=== PATIENT | male | born 1985 | race American Indian/Alaskan Native ===

== ENCOUNTER 2017-06-12 02:37 | Emergency (ER) | payer SELFPAY ==
--- NOTE | 2017-06-12 06:36 | Emergency Department Report ---
ED General Adult HPI - General Chief complaint: Skin Rash Stated complaint: ECZEMA Time Seen by Provider: 06/12/17 05:59 Source: patient Mode of arrival: Ambulatory Limitations: No Limitations - History of Present Illness Initial comments: 31 yo male who comes in today due to an eczema exacerbation. He states that he has been out of his topical medication for some time now. He admits to having eczema since he was a child. He denies any other complaints. Onset/Timin -: days(s) Location: head, face, neck, chest, back, upper extremity, lower extremity Radiation: non-radiation Severity scale (0 -10): 8 Quality: other (pruritic) Consistency: intermittent Improves with: medication Worsens with: other (dry skin ) Associated Symptoms: denies other symptoms Treatments Prior to Arrival: none - Related Data Previous Rx's Medication Instructions Recorded Last Taken Type Triamcinolone 0.1% [Kenalog 0.1% 1 applic TP BID #1 tube 06/12/17 Unknown Rx CREAM] Allergies Allergy/AdvReac Type Severity Reaction Status Date / Time No Known Allergies Allergy Unverified 06/12/17 03:13 ED Review of Systems ROS: Stated complaint: ECZEMA Other details as noted in HPI Constitutional: denies: chills, fever Eyes: denies: eye pain, eye discharge, vision change ENT: denies: ear pain, throat pain Respiratory: denies: cough, shortness of breath, wheezing Endocrine: no symptoms reported Gastrointestinal: denies: abdominal pain, nausea, diarrhea Genitourinary: denies: urgency, dysuria Musculoskeletal: denies: back pain, joint swelling, arthralgia Skin: as per HPI Neurological: denies: headache, weakness, paresthesias Psychiatric: denies: anxiety, depression Hematological/Lymphatic: denies: easy bleeding, easy bruising ED Past Medical Hx - Past Medical History Previous Medical History?: Yes Additional medical history: eczema - Surgical History Past Surgical History?: Yes Additional Surgical History: wisdom teeth removed - Social History Smoking Status: Current Every Day Smoker Substance Use Type: None - Medications Home Medications: Home Medications Medication Instructions Recorded Confirmed Last Taken Type Triamcinolone 0.1% [Kenalog 0.1% 1 applic TP BID #1 tube 06/12/17 Unknown Rx CREAM] ED Physical Exam - General Limitations: No Limitations General appearance: alert, in no apparent distress - Head Head exam: Present: atraumatic, normocephalic - Eye Eye exam: Present: normal appearance - ENT ENT exam: Present: mucous membranes moist - Neck Neck exam: Present: normal inspection - Respiratory Respiratory exam: Present: normal lung sounds bilaterally. Absent: respiratory distress - Cardiovascular Cardiovascular Exam: Present: regular rate, normal rhythm. Absent: systolic murmur, diastolic murmur, rubs, gallop - GI/Abdominal GI/Abdominal exam: Present: soft, normal bowel sounds - Extremities Exam Extremities exam: Present: normal inspection - Back Exam Back exam: Present: normal inspection - Neurological Exam Neurological exam: Present: alert, oriented X3 - Psychiatric Psychiatric exam: Present: normal affect, normal mood - Skin Skin exam: Present: rash (eczematous rash diffusely with dry skin ) ED Course Vital Signs 06/12/17 03:13 Temperature 98.2 F Pulse Rate 100 H Respiratory 18 Rate Blood Pressure 136/96 O2 Sat by Pulse 98 Oximetry Critical care attestation.: If time is entered above; I have spent that time in minutes in the direct care of this critically ill patient, excluding procedure time. ED Disposition Clinical Impression: Eczema, Chronic pruritic rash in adult Disposition: DC-01 TO HOME OR SELFCARE Is pt being admited?: No Does the pt Need Aspirin: No Condition: Stable Instructions: Eczema (ED) Additional Instructions: Please take medicine as prescribed. Prescriptions: Triamcinolone 0.1% [Kenalog 0.1% CREAM] 1 applic TP BID #1 tube Referrals: PRIMARY CARE, [Primary Care Provider] - 3-5 Days Time of Disposition: 06:38
[2017-06-12 06:45] VITALS: BP 139/90
== END 2017-06-12 06:53 | disposition home or self-care (01) ==
LOC: ED 02:37
DX: L30.9 Dermatitis, unspecified (principal); F17.210 Nicotine dependence, cigarettes, uncomplicated
CPT/HCPCS: 96372; 99282; J2930

== ENCOUNTER 2017-07-27 09:57 | Emergency (ER) | payer OTHER ==
[2017-07-27 10:50] VITALS: BP 159/110
--- NOTE | 2017-07-27 10:52 | Emergency Department Report ---
Chief Complaint: Nausea/Vomiting/Diarrhea Stated Complaint: NAUSEA/VOMITING Time Seen by Provider: 07/27/17 10:52 - HPI History of Present Illness: Patient to emergency room via EMS. Patient reports that he's been having nausea vomiting and diarrhea since 3 AM this morning he said he ate burgers and fries prior to going to his bed last night. Pain is located to mid abdomen around umbilical area and it is 10 out of 10 worse with movement. No medication taken. He said he had 3 diarrheas still and vomited 4-5 times and he said his vomit had some blood in it. Denies any urinary frequency urgency or burning. Denies any history of high blood pressures pressure is 159/110. Denies any fever or chills. Denies any back pain - ROS Review of Systems: This is a 31-year-old male well-nourished well-developed with facial grimacing . He is nontoxic in appearance - Exam Vital Signs: Vital Signs 07/27/17 10:49 Temperature 97.6 F Pulse Rate 95 H Respiratory 22 Rate Blood Pressure 159/110 O2 Sat by Pulse 98 Oximetry Physical Exam: Gen.: 31-year-old male well-nourished well-developed, facial grimacing. Nontoxic in appearance Abdomen: Tender to palpate the periumbilical area without any guarding or rebound tenderness. Normal bowel sounds no quadrants. No rigidity. No CVA tenderness MSE screening note: Focused history and physical exam performed. Due to findings the following was ordered: ED Medical Decision Making - Medical Decision Making MDM: Patient screened by provider in triage area. Appropriate protocol initiated and patient to be seen in main ED by ED Disposition for MSE Condition: Stable
[2017-07-27 12:00] LABS: Hematocrit 49.4 % (35.5-45.6); Hemoglobin 16.2 gm/dl (11.8-15.2); Mean Corpuscular HGB Conc 33 % (32-34); Mean Corpuscular Hemoglobin 31 pg (28-32); Mean Corpuscular Volume 96 fl (84-94); Platelet Count 328 K/mm3 (140-440); Red Blood Count 5.16 M/mm3 (3.65-5.03); Red Cell Distribution Width 12.9 % (13.2-15.2)
[2017-07-27 12:09] LABS: White Blood Count 21.7 K/mm3 (4.5-11.0)
[2017-07-27 12:10] LABS: Alanine Aminotransferase 63 units/L (7-56); Albumin 4.6 g/dL (3.9-5); Albumin/Globulin Ratio 1.3 %; Alkaline Phosphatase 65 units/L (35-129); Anion Gap 23 mmol/L; BUN/Creatinine Ratio 9; Blood Urea Nitrogen 7 mg/dL (9-20); Calcium 9.8 mg/dL (8.4-10.2); Carbon Dioxide 24 mmol/L (22-30); Chloride 98.6 mmol/L (98-107); Glucose 143 mg/dL (75-100); Potassium 3.7 mmol/L (3.6-5.0); Sodium 142 mmol/L (137-145); Total Protein 8.1 g/dL (6.3-8.2)
[2017-07-27 12:52] LABS: Basophils % (Manual) 0 % (0.0-1.8); Blastocytes % (Manual) 0 %; Diff Status Complete; Eosinophils % (Manual) 0 % (0.0-4.3); Platelet Estimate Consistent w Auto; RBC Morphology Normal
[2017-07-27 13:05] LABS: Lipase 1722 units/L (13-60)
== END 2017-07-27 20:45 | disposition left against medical advice (07) ==
LOC: ED 09:57
DX: R11.2 Nausea with vomiting, unspecified (principal); Z53.21 Procedure and treatment not carried out due to patient leaving prior to being seen by health care provider
CPT/HCPCS: 36415; 80053; 83690; 85007; 85025